=== PATIENT | male | born 1945 | race African-American/Black ===

== ENCOUNTER 2017-12-17 09:51 | Inpatient (IN) | payer OTHER ==
[2017-12-17 10:45] VITALS: BMI 21.5
--- NOTE | 2017-12-17 12:58 | HP ---
CIWA Score - CIWA Score Nausea/Vomitin Muscle Tremors: 2 Anxiety: 2 Agitation: 2 Paroxysmal Sweats: 1-Minimal Palms Moist Orientation: 0-Oriented Tacttile Disturbances: 1-Very Mild Itch/Numbness Auditory Disturbances: 1-Very Mild Visual Disturbances: 1-Very Mild Sensitivity Headache: 2-Mild CIWA-Ar Total Score: 14 Admission ROS BHS - HPI Chief Complaint: i need help to stop drinking alcohol Allergies/Adverse Reactions: Allergies Allergy/AdvReac Type Severity Reaction Status Date / Time No Known Allergies Allergy Verified 12/17/17 12:24 History of Present Illness: this 72 years old male with alcohol dependence,heroin abused,syncope yesterday, seen in [facility] was told had fx left ribs, ambulation with cane for 10 years low back pain,arthritis of knees htn non compliance nicotine dependence multiple admissions in the past last 08/23/15 to 08/18/15 no significant period of sobreity Exam Limitations: No Limitations - Ebola screening Have you traveled outside of the country in the last 21 days: No (N) Have you had contact with anyone from an Ebola affected area: No Have you been sick,other than usual withdrawal symptoms: No Do you have a fever: No - Review of Systems Constitutional: Loss of Appetite, Malaise, Night Sweats, Changes in sleep, Weakness, Unintentional Wgt. Loss EENT: reports: Nose Congestion Respiratory: reports: No Symptoms reported Cardiac: reports: No Symptoms Reported GI: reports: Nausea, Abdominal cramping : reports: No Symptoms Reported Musculoskeletal: reports: Back Pain, Muscle Pain Integumentary: reports: Dryness Neuro: reports: Headache, Tremors Endocrine: reports: No Symptoms Reported Hematology: reports: No Symptoms Reported Psychiatric: reports: No Sypmtoms Reported, Judgement Intact, Mood/Affect Appropiate, Orientated x3 Patient History - Patient Medical History Hx Anemia: No Hx Asthma: No Hx Chronic Obstructive Pulmonary Disease (COPD): No Hx Cancer: No Hx Cardiac Disorders: Yes (Pt has a pacemaker since 2013) Hx Congestive Heart Failure: No Hx Hypertension: Yes Hx Hypercholesterolemia: No Hx Pacemaker: Yes (in 2013 [facility]) HX Cerebrovascular Accident: No Hx Seizures: No Hx Dementia: No Hx Diabetes: No Hx Gastrointestinal Disorders: No Hx Liver Disease: No Hx Genitourinary Disorders: No Hx Sexually Transmitted Disorders: No Hx Renal Disease (ESRD): No Hx Thyroid Disease: No Hx Human Immunodeficiency Virus (HIV): No (last negative 2014) Hx Hepatitis C: No Hx Depression: No Hx Suicide Attempt: No Hx Bipolar Disorder: No Hx Schizophrenia: No Other Medical History: no suicidal,no homicidal - Patient Surgical History Past Surgical History: Yes Hx Cardiac Surgery: Yes (s/p cardiac device pacemaker at [facility] in 2013) - PPD History Previous Implant?: Yes Documented Results: Negative w/o proof Implanted On Prior [facility] Admission?: Yes Date: 08/25/15 PPD to be Administered?: Yes - Smoking Cessation Smoking history: Current every day smoker Have you smoked in the past 12 months: Yes Aproximately how many cigarettes per day: 6 Cigars Per Day: 0 Hx Chewing Tobacco Use: No Initiated information on smoking cessation: Yes 'Breaking Loose' booklet given: 12/17/17 - Substance & Tx. History Hx Alcohol Use: Yes Hx Substance Use: No Substance Use Type: Alcohol Hx Substance Use Treatment: Yes ([facility] 08/23/15 to 08/28/15) - Substances Abused Alcohol Route: Oral Frequency: Daily Amount used: 1 and 1/2 pints vodka Age of first use: 17 Date of Last Use: 12/16/17 Family Disease History - Family Disease History Family History: Denies Admission Physical Exam S - Vital Signs Vital Signs: Vital Signs - 24 hr 12/17/17 10:42 Temperature 97.6 F Pulse Rate 79 Respiratory 18 Rate Blood Pressure 117/71 - Physical General Appearance: Yes: Moderate Distress, Tremorous, Irritable, Sweating, Anxious HEENTM: Yes: Normocephalic, FELIBERTO, Pharynx Normal Respiratory: Yes: Within Normal Limits (pain in the left ribs,fell yesterday), Lungs Clear Neck: Yes: Within Normal Limits, Supple, Trachea in good position Breast: Yes: Within Normal Limits Cardiology: Yes: Within Normal Limits, Regular Rhythm, Regular Rate, S1, S2, Other (s/p pacemaker left chest wall) Abdominal: Yes: Within Normal Limits, Normal Bowel Sounds, Non Tender, Flat, Soft Genitourinary: Yes: Within Normal Limits Back: Yes: Normal Inspection, Muscle Spasm Musculoskeletal: Yes: Back pain, Muscle Pain Extremities: Yes: Within Normal Limits, Normal Range of Motion, Tremors Neurological: Yes: assorter II-XII NML intact, Alert, Motor Strength 5/5 Integumentary: Yes: Dry Lymphatic: Yes: Within Normal Limits - Diagnostic (1) Alcohol dependence with uncomplicated withdrawal Current Visit: No Status: Acute (2) Arthritis of both knees Current Visit: No Status: Acute (3) Essential hypertension Current Visit: No Status: Acute (4) Nicotine dependence Current Visit: No Status: Acute Qualifiers: Nicotine product type: cigarettes Substance use status: uncomplicated Qualified Code(s): F17.210 - Nicotine dependence, cigarettes, uncomplicated (5) Status post placement of cardiac pacemaker Current Visit: No Status: Acute (6) Syncope Current Visit: No Status: Acute (7) Use of cane as ambulatory aid Current Visit: No Status: Acute (8) Fracture, ribs Current Visit: Yes Status: Acute Qualifiers: Laterality: left (9) Dehydration Current Visit: Yes Status: Acute (10) Syncope Current Visit: Yes Status: Acute Cleared for Admission S - Detox or Rehab S Level of Care: Medically Managed Detox Regimen/Protocol: Librium S Breath Alcohol Content Breath Alcohol Content: 0 Urine Drug Screen - Results Drug Screen Negative: Yes
[2017-12-17] MEDS ORDERED: hydrOXYzine PAMOATE 25 MG CAPSULE (FP) PO PRN (13:07)
[2017-12-17] MEDS ORDERED: P-EPHED 60MG/TRIPROLIDI 2.5MG TABLET PO PRN (13:07)
[2017-12-17] MEDS ORDERED: LOPERAMIDE HCL 2 MG CAPSULE PO PRN (13:07)
[2017-12-17] MEDS ORDERED: MAG HYDROX/AL HYDROX/SIMETH 30 ML UNIT-DOSE CUP PO PRN (13:07)
[2017-12-17] MEDS ORDERED: chlordiazePOXIDE HCL 25 MG CAPSULE PO PRN (13:07)
[2017-12-17] MEDS ORDERED: MAGNESIUM CITRATE 300 ML BOTTLE PO PRN (13:07)
[2017-12-17] MEDS ORDERED: guaiFENesin/D-METHORPHAN HB 10 ML UNIT-DOSE CUPS PO PRN (13:07)
[2017-12-17] MEDS ORDERED: MENTHOL/PHENOL 1 EACH UD MM PRN (13:07)
[2017-12-17] MEDS ORDERED: MAGNESIUM HYDROX 2400MG/30ML ORAL SUSPENSION 30 ML CUP PO PRN (13:07)
[2017-12-17] MEDS: chlordiazePOXIDE HCL 25 MG CAPSULE PO SCH ×2 (17:48→22:12)
[2017-12-17] MEDS: IBUPROFEN 400 MG TABLET (FP) PO PRN (17:51)
[2017-12-17] MEDS ORDERED: MELATONIN 5 MG TABLETS PO PRN (22:00)
[2017-12-17] MEDS: THIAMINE HCL 100 MG TABLET (FP) PO SCH (22:12)
[2017-12-17] MEDS: ACETAMINOPHEN 325 MG TABLET (FP) PO PRN (22:15)
[2017-12-17] MEDS: METHYL SALICYLATE/MENTHOL OINT 30 GM TUBE TP SCH (22:48)
[2017-12-18] MEDS: IBUPROFEN 400 MG TABLET (FP) PO PRN ×2 (05:12→17:40)
[2017-12-18] MEDS: chlordiazePOXIDE HCL 25 MG CAPSULE PO SCH ×4 (06:25→22:26)
--- NOTE | 2017-12-18 09:24 | EKG ---
Test Reason : Blood Pressure : / mmHG Vent. Rate : 076 BPM Atrial Rate : 076 BPM P-R Int : 136 ms QRS Dur : 086 ms QT Int : 400 ms P-R-T Axes : 070 034 063 degrees QTc Int : 450 ms NORMAL SINUS RHYTHM NONSPECIFIC T WAVE ABNORMALITY ABNORMAL ECG NO PREVIOUS ECGS AVAILABLE Confirmed by LAVONNE FRAUSTO, VIPUL (2013) on 12/18/2017 9:23:20 AM Referred By: Confirmed By:VIPUL BANERJEE MD
[2017-12-18] MEDS: PRENATAL VITAMINS W/ FOLIC ACID TABLET (FP) PO SCH (10:17)
[2017-12-18] MEDS: NIFEdipine E.R. 30 MG TABLET (FP) PO SCH (10:17)
[2017-12-18] MEDS: METHYL SALICYLATE/MENTHOL OINT 30 GM TUBE TP SCH (10:17)
[2017-12-18 10:42] LABS: ALK PHOS 94 U/L (45-117); ANION GAP 7 MMOL/L (8-16); BILIRUBIN,TOTAL 0.7 mg/dL (0.2-1); BLOOD UREA NITROGEN 19 mg/dL (7-18); CALCIUM 9.8 mg/dL (8.5-10.1); CHLORIDE 102 mmol/L (98-107); CO2 33 mmol/L (21-32); GLUCOSE,RANDOM 92 mg/dL (74-106); HEMATOCRIT 41.8 % (35.4-49); HEMOGLOBIN 13.3 GM/dL (11.7-16.9); MCH 30.3 pg (25.7-33.7); MCHC 31.9 g/dl (32.0-35.9); MEAN CELL VOLUME 94.8 fl (80-96); MEAN PLT VOLUME 9.3 fl (7.5-11.1); PLATELET COUNT 209 K/MM3 (134-434); POTASSIUM 4.1 mmol/L (3.5-5.1); RBC 4.41 M/mm3 (4.00-5.60); RDW 15.8 % (11.9-15.9); SGOT/AST 27 U/L (15-37); SGPT/ALT 21 U/L (13-61); SODIUM 142 mmol/L (136-145); TOT PROT 7.4 g/dl (6.4-8.2); WHITE BLOOD COUNT 4.9 K/mm3 (4.0-10.0)
--- NOTE | 2017-12-18 11:09 | PN ---
BHS CIWA - CIWA Score Nausea/Vomitin Muscle Tremors: 2 Anxiety: 1-Mildly Anxious Agitation: 1-Slight > Activity Paroxysmal Sweats: No Perspiration Orientation: 0-Oriented Tacttile Disturbances: 0-None Auditory Disturbances: 0-None Visual Disturbances: 0-None Headache: 2-Mild CIWA-Ar Total Score: 8 BHS Progress Note (SOAP) Subjective: PATIENT C/O INTERMITTENT DIARRHEA, SHAKES AND HEADACHE. Objective: 12/18/17 11:07 Vital Signs Temperature 97.1 F L 12/18/17 09:30 Pulse Rate 74 12/18/17 09:30 Respiratory Rate 18 12/18/17 09:30 Blood Pressure 128/80 12/18/17 09:30 O2 Sat by Pulse Oximetry (%) Laboratory Tests 12/18/17 12/18/17 06:00 06:00 WBC 4.9 RBC 4.41 Hgb 13.3 Hct 41.8 MCV 94.8 MCH 30.3 D MCHC 31.9 L RDW 15.8 Plt Count 209 MPV 9.3 Sodium 142 Potassium 4.1 Chloride 102 Carbon Dioxide 33 H Anion Gap 7 L BUN 19 H Creatinine 1.0 Creat Clearance w eGFR > 60 Random Glucose 92 Calcium 9.8 Total Bilirubin 0.7 AST 27 ALT 21 Alkaline Phosphatase 94 Total Protein 7.4 Albumin 4.0 SKIN WARM AND DRY CAR S1S2 RESP CTA BL EXT MILD TREMORS NEURO ALERT AND ORIENTED X 3, +PERRLA Assessment: 12/18/17 11:08 WITHDRAWAL SYNDROME Plan: CONTINUE DETOX ORDERED ENCOURAGE ORAL FLUIDS CONTINUE TO MONITOR CLINICALLY
[2017-12-18] MEDS ORDERED: FLU VACCINE QUAD 60 MCG/0.5 ML (MDV 18-19) IM ONE (12:00)
[2017-12-18] MEDS: THIAMINE HCL 100 MG TABLET (FP) PO SCH (22:25)
[2017-12-19] MEDS: chlordiazePOXIDE HCL 25 MG CAPSULE PO SCH ×2 (06:40→10:32)
[2017-12-19] MEDS ORDERED: ONDANSETRON *ODT* 4 MG TABLET SL PRN (10:29)
[2017-12-19] MEDS: PRENATAL VITAMINS W/ FOLIC ACID TABLET (FP) PO SCH (10:31)
[2017-12-19] MEDS: NIFEdipine E.R. 30 MG TABLET (FP) PO SCH (10:32)
[2017-12-19] MEDS: IBUPROFEN 400 MG TABLET (FP) PO PRN ×2 (10:33→22:15)
[2017-12-19] MEDS: METHYL SALICYLATE/MENTHOL OINT 30 GM TUBE TP SCH (10:35)
--- NOTE | 2017-12-19 11:32 | PN ---
S CIWA - CIWA Score Nausea/Vomitin Muscle Tremors: 1-None Visible, but [place] Anxiety: 1-Mildly Anxious Agitation: 1-Slight > Activity Paroxysmal Sweats: 2 Orientation: 0-Oriented Tacttile Disturbances: 0-None Auditory Disturbances: 0-None Visual Disturbances: 0-None Headache: 0-None Present CIWA-Ar Total Score: 8 BHS Progress Note (SOAP) Subjective: PATIENT C/O NAUSEA AND VOMITED LAST NIGHT X ONE, ALSO C/O ANXIETY, SWEATING. Objective: 12/19/17 11:30 Vital Signs Temperature 96.8 F L 12/19/17 09:08 Pulse Rate 74 12/19/17 09:08 Respiratory Rate 18 12/19/17 09:08 Blood Pressure 104/69 12/19/17 09:08 O2 Sat by Pulse Oximetry (%) Laboratory Tests 12/18/17 12/18/17 12/18/17 06:00 06:00 06:00 WBC 4.9 RBC 4.41 Hgb 13.3 Hct 41.8 MCV 94.8 MCH 30.3 D MCHC 31.9 L RDW 15.8 Plt Count 209 MPV 9.3 Sodium 142 Potassium 4.1 Chloride 102 Carbon Dioxide 33 H Anion Gap 7 L BUN 19 H Creatinine 1.0 Creat Clearance w eGFR > 60 Random Glucose 92 Calcium 9.8 Total Bilirubin 0.7 AST 27 ALT 21 Alkaline Phosphatase 94 Total Protein 7.4 Albumin 4.0 RPR Titer Nonreactive PE ALERT AND ORIENTED X 3 SKIN WARM AND MOIST CAR S1S2 RESP CTA BL GI SOFT, BS+, NT EXT FULL ROM AMB AD NICOLA Assessment: 12/19/17 11:31 WITHDRAWAL SYNDROME Plan: CONTINUE DETOX ENCOURAGE ORAL FLUIDS ADD ZOFRAN TO REGIMEN CONTINUE TO MONITOR CLINICALLY
[2017-12-19] MEDS: chlordiazePOXIDE 5 MG CAPSULE PO SCH ×2 (17:20→22:12)
[2017-12-19] MEDS: THIAMINE HCL 100 MG TABLET (FP) PO SCH (22:12)
[2017-12-20] MEDS: chlordiazePOXIDE 5 MG CAPSULE PO SCH ×2 (06:57→10:25)
[2017-12-20] MEDS: PRENATAL VITAMINS W/ FOLIC ACID TABLET (FP) PO SCH (10:24)
[2017-12-20] MEDS: METHYL SALICYLATE/MENTHOL OINT 30 GM TUBE TP SCH (10:24)
[2017-12-20] MEDS: NIFEdipine E.R. 30 MG TABLET (FP) PO SCH (10:24)
--- NOTE | 2017-12-20 11:21 | PN ---
S Progress Note Note: PATIENT CONTINUES WITH DETOX REGIMEN. REPORTS HAVING NAUSEA AND VOMITED X 2 LAST NIGHT. Vital Signs Temperature 96.7 F L 12/20/17 09:45 Pulse Rate 76 12/20/17 09:45 Respiratory Rate 18 12/20/17 09:45 Blood Pressure 106/82 12/20/17 09:45 O2 Sat by Pulse Oximetry (%) Laboratory Tests 12/18/17 12/18/17 12/18/17 06:00 06:00 06:00 WBC 4.9 RBC 4.41 Hgb 13.3 Hct 41.8 MCV 94.8 MCH 30.3 D MCHC 31.9 L RDW 15.8 Plt Count 209 MPV 9.3 Sodium 142 Potassium 4.1 Chloride 102 Carbon Dioxide 33 H Anion Gap 7 L BUN 19 H Creatinine 1.0 Creat Clearance w eGFR > 60 Random Glucose 92 Calcium 9.8 Total Bilirubin 0.7 AST 27 ALT 21 Alkaline Phosphatase 94 Total Protein 7.4 Albumin 4.0 RPR Titer Nonreactive PE: ALERT AND ORIENTED X 3 SKIN WARM AND DRY CAR S1S2 RESP CTA BL EXT NO EDEMA, FULL ROM A/P WITHDRAWAL SYNDROME CONTINUE DETOX G[place] ADDED TO DIET CONTINUE TO MONITOR CLINICALLY
[2017-12-20] MEDS: chlordiazePOXIDE HCL 10 MG CAPSULE PO SCH ×2 (17:39→22:17)
[2017-12-20] MEDS: THIAMINE HCL 100 MG TABLET (FP) PO SCH (22:17)
[2017-12-20] MEDS: IBUPROFEN 400 MG TABLET (FP) PO PRN (22:19)
[2017-12-21] MEDS: ACETAMINOPHEN 325 MG TABLET (FP) PO PRN (01:56)
[2017-12-21] MEDS: chlordiazePOXIDE HCL 10 MG CAPSULE PO SCH ×2 (05:04→10:31)
[2017-12-21] MEDS: IBUPROFEN 400 MG TABLET (FP) PO PRN (05:04)
[2017-12-21] MEDS: METHYL SALICYLATE/MENTHOL OINT 30 GM TUBE TP SCH (10:30)
[2017-12-21] MEDS: NIFEdipine E.R. 30 MG TABLET (FP) PO SCH (10:30)
[2017-12-21] MEDS: PRENATAL VITAMINS W/ FOLIC ACID TABLET (FP) PO SCH (10:30)
--- NOTE | 2017-12-21 13:06 | PN ---
BHS Progress Note (SOAP) Subjective: Sweating, anxious, interrupted sleep. Patient requesting [facility] Objective: 12/21/17 13:02 Last Vital Signs Temp Pulse Resp BP Pulse Ox 97 F L 60 16 116/74 12/21/17 09:26 12/21/17 09:26 12/21/17 09:26 12/21/17 09:26 Laboratory Tests 12/18/17 12/18/17 12/18/17 06:00 06:00 06:00 WBC 4.9 RBC 4.41 Hgb 13.3 Hct 41.8 MCV 94.8 MCH 30.3 D MCHC 31.9 L RDW 15.8 Plt Count 209 MPV 9.3 Sodium 142 Potassium 4.1 Chloride 102 Carbon Dioxide 33 H Anion Gap 7 L BUN 19 H Creatinine 1.0 Creat Clearance w eGFR > 60 Random Glucose 92 Calcium 9.8 Total Bilirubin 0.7 AST 27 ALT 21 Alkaline Phosphatase 94 Total Protein 7.4 Albumin 4.0 RPR Titer Nonreactive Labs reviewed Assessment: 12/21/17 13:03 Withdrawal symptoms Plan: Continue detox Encouraged PO water intake Discharge cancelled for today as patient has straight medicaid and requesting to stay so that he can receive [facility]. Patient instructed to speak with his counselor tomorrow. Patient is concerned about drinking alcohol if he is discharged today.
[2017-12-21] MEDS: THIAMINE HCL 100 MG TABLET (FP) PO SCH (22:45)
[2017-12-22] MEDS: IBUPROFEN 400 MG TABLET (FP) PO PRN (00:27)
[2017-12-22] MEDS: ACETAMINOPHEN 325 MG TABLET (FP) PO PRN (03:29)
[2017-12-22] MEDS: NIFEdipine E.R. 30 MG TABLET (FP) PO SCH (10:19)
[2017-12-22] MEDS: PRENATAL VITAMINS W/ FOLIC ACID TABLET (FP) PO SCH (10:19)
[2017-12-22] MEDS: METHYL SALICYLATE/MENTHOL OINT 30 GM TUBE TP SCH (10:19)
--- NOTE | 2017-12-22 13:42 | HP ---
Psychiatrist Admission - Data Date of interview: 12/22/17 Admission source: 6N Identifying data: This is the first [facility] admission for this 72 years old Black male, father of 6 children, unemployed on SSI, domiciled Medical History: Significant for hypertension, dyslipidemia, low back pain, arthritis both knees and history of pacemaker implantation in 2013. Smokes 5 cigarettes daily Psychiatric History: Denies history of previous psychiatric treatment Physical/Sexual Abuse/Trauma History: Denies history of emotional, physical or sexual abuse as well as DV relationship. Reports serving in the [employer] Vital Signs: Vital Signs - 24 hr 12/21/17 12/21/17 12/21/17 13:52 17:49 21:07 Temperature 97.1 F L 97.9 F 96.5 F L Pulse Rate 61 72 69 Respiratory 18 16 18 Rate Blood Pressure 118/84 129/81 101/68 12/22/17 12/22/17 06:04 09:58 Temperature 97.5 F L 96.4 F L Pulse Rate 57 L 69 Respiratory 18 18 Rate Blood Pressure 120/78 113/74 Allergies/Adverse Reactions: Allergies Allergy/AdvReac Type Severity Reaction Status Date / Time No Known Allergies Allergy Verified 12/17/17 12:24 Date of last physical exam: 12/17/17 Concur with the findings of this exam: Yes - Substance Abuse/Tx History Hx Alcohol Use: Yes Hx Substance Use: No Substance Use Type: Alcohol (Started drinking alcohol at age 17, consumes 1.5 pint daily. Last drank on 12/16/17) Hx Substance Use Treatment: Yes (2 previous inpt detox and rehab ) Mental Status Exam - Mental Status Exam Alert and Oriented to: Time, Place, Person Cognitive Function: Fair Patient Appearance: Disheveled Mood: Hopeful, Euthymic Patient Behavior: Cooperative Speech Pattern: Clear Voice Loudness: Normal Thought Process: Intact, Goal Oriented Thought Disorder: Not Present Hallucinations: Denies Suicidal Ideation: Denies Homicidal Ideation: Denies Insight/Judgement: Fair Sleep: Poorly Appetite: Good Muscle strength/Tone: Normal Gait/Station: Other (Uses a 4 prong cane as ambulatory aid) Psychiatric Findings - Problem List ([place] 1, 2,3) (1) Alcohol dependence Current Visit: Yes Status: Acute Qualifiers: Qualified Code(s): F10.230 - Alcohol dependence with withdrawal, uncomplicated (2) Nicotine dependence Current Visit: Yes Status: Chronic Qualifiers: Nicotine product type: cigarettes Substance use status: uncomplicated Qualified Code(s): F17.210 - Nicotine dependence, cigarettes, uncomplicated (3) Substance induced mood disorder Current Visit: Yes Status: Acute (4) Substance-induced sleep disorder Current Visit: Yes Status: Acute (5) Fracture, ribs Current Visit: Yes Status: Acute Qualifiers: Laterality: left (6) Arthritis of both knees Current Visit: Yes Status: Chronic (7) Essential hypertension Current Visit: Yes Status: Chronic (8) Status post placement of cardiac pacemaker Current Visit: Yes Status: Chronic (9) Use of cane as ambulatory aid Current Visit: No Status: Acute - Initial Treatment Plan Initial Treatment Plan: 1) Start Melatonin 5 mg po HS prn for insomnia. 2) Monitor progress
--- NOTE | 2017-12-22 14:40 | PN ---
BHS Progress Note (SOAP) Subjective: Knee pain Objective: 12/22/17 14:39 Lying in bed No resp distress A & O x 3 Vital Signs Temperature 96.4 F L 12/22/17 09:58 Pulse Rate 69 12/22/17 09:58 Respiratory Rate 18 12/22/17 09:58 Blood Pressure 113/74 12/22/17 09:58 O2 Sat by Pulse Oximetry (%) Assessment: 12/22/17 14:40 withdrawal sx Knee pain s/p Arthritis Plan: for d/c
--- NOTE | 2017-12-22 14:45 | DS ---
[facility] Detox Discharge Summary Admission Date: 12/17/17 Discharge Date: 12/22/17 - History Additional Comments: Pt for discharge today Will do aftercare at [facility] Rehab Pertinent Past History: HTN Arthritis of both knee S/p cardiac pacemaker - Physical Exam Results Vital Signs: Vital Signs Temperature 96.4 F L 12/22/17 09:58 Pulse Rate 69 12/22/17 09:58 Respiratory Rate 18 12/22/17 09:58 Blood Pressure 113/74 12/22/17 09:58 O2 Sat by Pulse Oximetry (%) Pertinent Admission Physical Exam Findings: withdrawal sx - Treatment Hospital Course: Detox Protocol Followed, Detoxed Safely, Responded well, Discharged Condition Good, Rehab Referral Accepted Patient has Accepted a Rehab Referral to: [facility] Rehab - Medication Discharge Medications: Ambulatory Orders Nifedipine [Procardia Xl] 30 mg PO DAILY #30 tab.[id number] 12/20/17 - Diagnosis (1) Alcohol dependence with uncomplicated withdrawal Current Visit: Yes Status: Acute (2) Dehydration Current Visit: Yes Status: Acute (3) Fracture, ribs Current Visit: Yes Status: Acute Qualifiers: Laterality: left (4) Substance induced mood disorder Current Visit: Yes Status: Acute (5) Substance-induced sleep disorder Current Visit: Yes Status: Acute (6) Arthritis of both knees Current Visit: Yes Status: Chronic (7) Essential hypertension Current Visit: Yes Status: Chronic (8) Nicotine dependence Current Visit: Yes Status: Chronic Qualifiers: Nicotine product type: cigarettes Substance use status: uncomplicated Qualified Code(s): F17.210 - Nicotine dependence, cigarettes, uncomplicated (9) Status post placement of cardiac pacemaker Current Visit: Yes Status: Chronic (10) Syncope Current Visit: No Status: Acute (11) Use of cane as ambulatory aid Current Visit: No Status: Acute - AMA Did Patient Leave Against Medical Advice: No
[2017-12-22] MEDS ORDERED: hydrOXYzine PAMOATE 25 MG CAPSULE (FP) PO PRN (15:45)
[2017-12-22] MEDS ORDERED: P-EPHED 60MG/TRIPROLIDI 2.5MG TABLET PO PRN (15:45)
[2017-12-22] MEDS ORDERED: MENTHOL/PHENOL 1 EACH UD MM PRN (15:45)
[2017-12-22] MEDS ORDERED: LOPERAMIDE HCL 2 MG CAPSULE PO PRN (15:45)
[2017-12-22] MEDS ORDERED: MAGNESIUM HYDROX 2400MG/30ML ORAL SUSPENSION 30 ML CUP PO PRN (15:45)
[2017-12-22] MEDS ORDERED: MAGNESIUM CITRATE 300 ML BOTTLE PO PRN (15:45)
[2017-12-22] MEDS ORDERED: NICOTINE POLACRILEX 2 MG GUM BUC PRN (15:45)
[2017-12-22] MEDS ORDERED: MAG HYDROX/AL HYDROX/SIMETH 30 ML UNIT-DOSE CUP PO PRN (15:45)
[2017-12-22] MEDS ORDERED: guaiFENesin/D-METHORPHAN HB 10 ML UNIT-DOSE CUPS PO PRN (15:45)
[2017-12-22] MEDS: THIAMINE HCL 100 MG TABLET (FP) PO SCH (21:37)
[2017-12-22] MEDS ORDERED: MELATONIN 5 MG TABLETS PO PRN (22:00)
[2017-12-23] MEDS: IBUPROFEN 400 MG TABLET (FP) PO PRN ×3 (09:55→21:48)
[2017-12-23] MEDS: PRENATAL VITAMINS W/ FOLIC ACID TABLET (FP) PO SCH (09:55)
[2017-12-23] MEDS: NIFEdipine E.R. 30 MG TABLET (FP) PO SCH (10:20)
[2017-12-23] MEDS: THIAMINE HCL 100 MG TABLET (FP) PO SCH (21:47)
[2017-12-24] MEDS: PRENATAL VITAMINS W/ FOLIC ACID TABLET (FP) PO SCH (09:39)
[2017-12-24] MEDS: NIFEdipine E.R. 30 MG TABLET (FP) PO SCH (09:42)
[2017-12-24] MEDS: THIAMINE HCL 100 MG TABLET (FP) PO SCH (21:18)
[2017-12-24] MEDS: IBUPROFEN 400 MG TABLET (FP) PO PRN (21:19)
[2017-12-25] MEDS: NIFEdipine E.R. 30 MG TABLET (FP) PO SCH (09:40)
[2017-12-25] MEDS: PRENATAL VITAMINS W/ FOLIC ACID TABLET (FP) PO SCH (09:40)
[2017-12-25] MEDS ORDERED: FLU VACCINE QUAD 60 MCG/0.5 ML (MDV 18-19) IM ONE (12:00)
[2017-12-25] MEDS: THIAMINE HCL 100 MG TABLET (FP) PO SCH (21:17)
[2017-12-25] MEDS: IBUPROFEN 400 MG TABLET (FP) PO PRN (21:17)
[2017-12-26] MEDS: PRENATAL VITAMINS W/ FOLIC ACID TABLET (FP) PO SCH (09:50)
[2017-12-26] MEDS: NIFEdipine E.R. 30 MG TABLET (FP) PO SCH (09:51)
[2017-12-26] MEDS: IBUPROFEN 400 MG TABLET (FP) PO PRN ×2 (09:51→21:35)
[2017-12-26] MEDS: THIAMINE HCL 100 MG TABLET (FP) PO SCH (21:34)
[2017-12-27] MEDS: IBUPROFEN 400 MG TABLET (FP) PO PRN ×2 (05:59→21:35)
[2017-12-27] MEDS: PRENATAL VITAMINS W/ FOLIC ACID TABLET (FP) PO SCH (10:12)
[2017-12-27] MEDS: NIFEdipine E.R. 30 MG TABLET (FP) PO SCH (10:12)
[2017-12-27] MEDS: THIAMINE HCL 100 MG TABLET (FP) PO SCH (21:35)
[2017-12-28] MEDS: PRENATAL VITAMINS W/ FOLIC ACID TABLET (FP) PO SCH (09:43)
[2017-12-28] MEDS: NIFEdipine E.R. 30 MG TABLET (FP) PO SCH (09:44)
[2017-12-28] MEDS: IBUPROFEN 400 MG TABLET (FP) PO PRN ×2 (09:45→21:29)
[2017-12-28] MEDS: THIAMINE HCL 100 MG TABLET (FP) PO SCH (21:29)
[2017-12-29] MEDS: PRENATAL VITAMINS W/ FOLIC ACID TABLET (FP) PO SCH (09:52)
[2017-12-29] MEDS: NIFEdipine E.R. 30 MG TABLET (FP) PO SCH (09:52)
[2017-12-29] MEDS: IBUPROFEN 400 MG TABLET (FP) PO PRN ×2 (09:52→21:48)
[2017-12-29] MEDS ORDERED: PT OWN MED DRAWER 7, Y5N ONE (10:52)
[2017-12-29] MEDS: THIAMINE HCL 100 MG TABLET (FP) PO SCH (21:48)
[2017-12-30] MEDS: NIFEdipine E.R. 30 MG TABLET (FP) PO SCH (09:43)
[2017-12-30] MEDS: IBUPROFEN 400 MG TABLET (FP) PO PRN ×2 (09:43→21:16)
[2017-12-30] MEDS: PRENATAL VITAMINS W/ FOLIC ACID TABLET (FP) PO SCH (09:43)
[2017-12-30] MEDS ORDERED: PT OWN MED DRAWER 7, Y5N ONE (11:47)
[2017-12-30] MEDS: THIAMINE HCL 100 MG TABLET (FP) PO SCH (21:16)
[2017-12-31] MEDS: PRENATAL VITAMINS W/ FOLIC ACID TABLET (FP) PO SCH (10:37)
[2017-12-31] MEDS: NIFEdipine E.R. 30 MG TABLET (FP) PO SCH (10:37)
[2017-12-31] MEDS: IBUPROFEN 400 MG TABLET (FP) PO PRN ×2 (10:39→22:00)
[2017-12-31] MEDS: THIAMINE HCL 100 MG TABLET (FP) PO SCH (22:00)
[2018-01-01] MEDS: PRENATAL VITAMINS W/ FOLIC ACID TABLET (FP) PO SCH (09:30)
[2018-01-01] MEDS: NIFEdipine E.R. 30 MG TABLET (FP) PO SCH (09:30)
[2018-01-01] MEDS: IBUPROFEN 400 MG TABLET (FP) PO PRN ×2 (09:31→21:42)
[2018-01-01] MEDS: THIAMINE HCL 100 MG TABLET (FP) PO SCH (21:42)
[2018-01-02] MEDS: NIFEdipine E.R. 30 MG TABLET (FP) PO SCH (10:48)
[2018-01-02] MEDS: IBUPROFEN 400 MG TABLET (FP) PO PRN ×2 (10:49→21:16)
[2018-01-02] MEDS: PRENATAL VITAMINS W/ FOLIC ACID TABLET (FP) PO SCH (10:49)
[2018-01-02] MEDS: THIAMINE HCL 100 MG TABLET (FP) PO SCH (21:16)
[2018-01-03] MEDS: PRENATAL VITAMINS W/ FOLIC ACID TABLET (FP) PO SCH (09:55)
[2018-01-03] MEDS: IBUPROFEN 400 MG TABLET (FP) PO PRN ×2 (09:55→21:38)
[2018-01-03] MEDS: NIFEdipine E.R. 30 MG TABLET (FP) PO SCH (09:56)
[2018-01-03] MEDS: THIAMINE HCL 100 MG TABLET (FP) PO SCH (21:37)
[2018-01-04] MEDS: PRENATAL VITAMINS W/ FOLIC ACID TABLET (FP) PO SCH (10:07)
[2018-01-04] MEDS: NIFEdipine E.R. 30 MG TABLET (FP) PO SCH (10:07)
[2018-01-04] MEDS: IBUPROFEN 400 MG TABLET (FP) PO PRN ×2 (10:08→21:46)
[2018-01-04] MEDS: THIAMINE HCL 100 MG TABLET (FP) PO SCH (21:45)
[2018-01-05] MEDS: NIFEdipine E.R. 30 MG TABLET (FP) PO SCH (10:07)
[2018-01-05] MEDS: PRENATAL VITAMINS W/ FOLIC ACID TABLET (FP) PO SCH (10:07)
[2018-01-05] MEDS: IBUPROFEN 400 MG TABLET (FP) PO PRN ×2 (10:07→21:31)
[2018-01-05] MEDS: THIAMINE HCL 100 MG TABLET (FP) PO SCH (21:30)
[2018-01-06] MEDS: PRENATAL VITAMINS W/ FOLIC ACID TABLET (FP) PO SCH (10:00)
[2018-01-06] MEDS: NIFEdipine E.R. 30 MG TABLET (FP) PO SCH (10:00)
[2018-01-06] MEDS: IBUPROFEN 400 MG TABLET (FP) PO PRN ×2 (10:01→21:34)
[2018-01-06] MEDS: THIAMINE HCL 100 MG TABLET (FP) PO SCH (22:00)
[2018-01-07] MEDS: IBUPROFEN 400 MG TABLET (FP) PO PRN ×2 (10:24→21:09)
[2018-01-07] MEDS: PRENATAL VITAMINS W/ FOLIC ACID TABLET (FP) PO SCH (10:24)
[2018-01-07] MEDS: NIFEdipine E.R. 30 MG TABLET (FP) PO SCH (10:24)
[2018-01-07] MEDS: THIAMINE HCL 100 MG TABLET (FP) PO SCH (21:08)
[2018-01-08] MEDS: NIFEdipine E.R. 30 MG TABLET (FP) PO SCH (09:56)
[2018-01-08] MEDS: PRENATAL VITAMINS W/ FOLIC ACID TABLET (FP) PO SCH (09:56)
[2018-01-08] MEDS: IBUPROFEN 400 MG TABLET (FP) PO PRN ×2 (09:56→22:02)
[2018-01-08] MEDS ORDERED: COLLOIDAL OATMEAL 1 BAR EACH TP PRN (13:50)
[2018-01-08] MEDS: THIAMINE HCL 100 MG TABLET (FP) PO SCH (22:02)
[2018-01-09] MEDS: IBUPROFEN 400 MG TABLET (FP) PO PRN ×2 (10:30→22:31)
[2018-01-09] MEDS: PRENATAL VITAMINS W/ FOLIC ACID TABLET (FP) PO SCH (10:30)
[2018-01-09] MEDS: NIFEdipine E.R. 30 MG TABLET (FP) PO SCH (10:30)
[2018-01-09] MEDS: THIAMINE HCL 100 MG TABLET (FP) PO SCH (22:31)
[2018-01-10] MEDS: IBUPROFEN 400 MG TABLET (FP) PO PRN ×2 (10:19→21:42)
[2018-01-10] MEDS: NIFEdipine E.R. 30 MG TABLET (FP) PO SCH (10:19)
[2018-01-10] MEDS: PRENATAL VITAMINS W/ FOLIC ACID TABLET (FP) PO SCH (10:19)
[2018-01-10] MEDS: THIAMINE HCL 100 MG TABLET (FP) PO SCH (21:42)
[2018-01-11] MEDS: NIFEdipine E.R. 30 MG TABLET (FP) PO SCH (10:12)
[2018-01-11] MEDS: PRENATAL VITAMINS W/ FOLIC ACID TABLET (FP) PO SCH (10:13)
[2018-01-11] MEDS: ACETAMINOPHEN 325 MG TABLET (FP) PO PRN ×2 (10:14→21:58)
[2018-01-11] MEDS: THIAMINE HCL 100 MG TABLET (FP) PO SCH (21:58)
[2018-01-12] MEDS: IBUPROFEN 400 MG TABLET (FP) PO PRN ×2 (10:26→23:14)
[2018-01-12] MEDS: PRENATAL VITAMINS W/ FOLIC ACID TABLET (FP) PO SCH (10:26)
[2018-01-12] MEDS: NIFEdipine E.R. 30 MG TABLET (FP) PO SCH (10:26)
[2018-01-12] MEDS: LIDOCAINE 5% TOPICAL PATCH TP SCH (15:17)
[2018-01-12] MEDS: THIAMINE HCL 100 MG TABLET (FP) PO SCH (23:13)
[2018-01-12] MEDS: LIDOCAINE PATCH REMOVAL MC SCH (23:13)
[2018-01-13] MEDS: LIDOCAINE 5% TOPICAL PATCH TP SCH (09:56)
[2018-01-13] MEDS: NIFEdipine E.R. 30 MG TABLET (FP) PO SCH (09:56)
[2018-01-13] MEDS: PRENATAL VITAMINS W/ FOLIC ACID TABLET (FP) PO SCH (09:56)
[2018-01-13] MEDS: IBUPROFEN 400 MG TABLET (FP) PO PRN ×2 (09:57→21:54)
[2018-01-13] MEDS: THIAMINE HCL 100 MG TABLET (FP) PO SCH (21:54)
[2018-01-13] MEDS: LIDOCAINE PATCH REMOVAL MC SCH (22:51)
[2018-01-14] MEDS: NIFEdipine E.R. 30 MG TABLET (FP) PO SCH (10:30)
[2018-01-14] MEDS: PRENATAL VITAMINS W/ FOLIC ACID TABLET (FP) PO SCH (10:30)
[2018-01-14] MEDS: LIDOCAINE 5% TOPICAL PATCH TP SCH (10:30)
[2018-01-14] MEDS: LIDOCAINE PATCH REMOVAL MC SCH (22:16)
[2018-01-14] MEDS: THIAMINE HCL 100 MG TABLET (FP) PO SCH (22:16)
[2018-01-15] MEDS: PRENATAL VITAMINS W/ FOLIC ACID TABLET (FP) PO SCH (10:39)
[2018-01-15] MEDS: NIFEdipine E.R. 30 MG TABLET (FP) PO SCH (10:39)
[2018-01-15] MEDS: IBUPROFEN 400 MG TABLET (FP) PO PRN ×2 (10:39→21:57)
[2018-01-15] MEDS: LIDOCAINE 5% TOPICAL PATCH TP SCH (11:00)
[2018-01-15] MEDS: THIAMINE HCL 100 MG TABLET (FP) PO SCH (21:56)
[2018-01-15] MEDS: LIDOCAINE PATCH REMOVAL MC SCH (21:56)
[2018-01-16] MEDS: IBUPROFEN 400 MG TABLET (FP) PO PRN ×2 (10:27→22:19)
[2018-01-16] MEDS: NIFEdipine E.R. 30 MG TABLET (FP) PO SCH (10:27)
[2018-01-16] MEDS: PRENATAL VITAMINS W/ FOLIC ACID TABLET (FP) PO SCH (10:27)
[2018-01-16] MEDS: LIDOCAINE 5% TOPICAL PATCH TP SCH (10:28)
[2018-01-16] MEDS: THIAMINE HCL 100 MG TABLET (FP) PO SCH (22:19)
[2018-01-16] MEDS: LIDOCAINE PATCH REMOVAL MC SCH (22:59)
[2018-01-17] MEDS: PRENATAL VITAMINS W/ FOLIC ACID TABLET (FP) PO SCH (09:50)
[2018-01-17] MEDS: NIFEdipine E.R. 30 MG TABLET (FP) PO SCH (09:50)
[2018-01-17] MEDS: LIDOCAINE 5% TOPICAL PATCH TP SCH (09:50)
[2018-01-17] MEDS: IBUPROFEN 400 MG TABLET (FP) PO PRN ×2 (09:51→23:02)
[2018-01-17] MEDS: THIAMINE HCL 100 MG TABLET (FP) PO SCH (23:04)
[2018-01-17] MEDS: LIDOCAINE PATCH REMOVAL MC SCH (23:05)
--- NOTE | 2018-01-18 06:42 | PN ---
Psychiatric Progress Note Vital Signs: Vital Signs Period Temp Pulse Resp BP Sys/Fisher Pulse Ox Last 24 Hr 97.7 F 66-78 - 95-117/65-67 Date of Session: 01/18/18 Chief Complaint:: Discharge Note HPI: Patient addressing Alcohol Dependence comorbid with Nicotine Dependence, Substance-Induced Mood Disorder and Substance-Induced Sleep Disorder ROS: HTN, Arthritis both knees, S/P cardiac pacemaker placement, Fractures, ribs Current Medications: Active Medications Generic Name Dose Route Start Last Admin Trade Name Freq PRN Reason Stop Dose Admin Acetaminophen 650 mg 12/22/17 15:45 01/11/18 21:58 Tylenol - PO 650 mg Q4H PRN Administration FEVER Al Hydroxide/Mg Hydroxide 30 ml 12/22/17 15:45 01/09/18 23:46 Mylanta Oral Suspension - PO 30 ml Q6H PRN Administration DYSPEPSIA Colloidal Oatmeal 1 applic 01/08/18 13:50 01/08/18 22:11 Aveeno Soap - TP 1 applic DAILY PRN Administration HYGEINE Eucalyptus/Menthol/Phenol/Sorbitol 1 each 12/22/17 15:45 Cepastat Lozenge - MM Q4H PRN SORE THROAT Guaifenesin 10 ml 12/22/17 15:45 01/17/18 23:03 Robitussin Dm - PO 10 ml Q6H PRN Administration COUGH Hydroxyzine Pamoate 25 mg 12/22/17 15:45 Vistaril - PO Q4H PRN AGITATION Ibuprofen 400 mg 12/22/17 15:45 01/17/18 23:02 Motrin - PO 400 mg Q6H PRN Administration Pain Level 4-6 Lidocaine 1 patch 01/12/18 14:00 01/17/18 09:50 Lidoderm Patch - TP 1 patch DAILY VU Administration Loperamide HCl 4 mg 12/22/17 15:45 Imodium - PO Q6H PRN DIARRHEA Magnesium Citrate 300 ml 12/22/17 15:45 Citroma - PO Q48H PRN CONSTIPATION Magnesium Hydroxide 30 ml 12/22/17 15:45 Milk Of Magnesia - PO DAILY PRN CONSTIPATION Melatonin 5 mg 12/22/17 22:00 01/05/18 21:30 Melatonin PO 5 mg HS PRN Administration INSOMNIA Miscellaneous 1 each 01/12/18 22:00 01/17/18 23:05 Lidoderm Patch Removal MC Not Given DAILY@2200 VU Nicotine Polacrilex 2 mg 12/22/17 15:45 Nicorette Gum - BUC Q2H PRN NICOTINE REPLACEMENT RX Nifedipine 30 mg 12/23/17 10:00 01/17/18 09:50 Procardia Xl - PO 30 mg DAILY VU Administration Multivit/Folic Acid/Iron 1 tab 12/23/17 10:00 01/17/18 09:50 Vitamins (Sjr) - PO 1 tab DAILY VU Administration Pseudoephedrine/Triprolidine 1 combo 12/22/17 15:45 Actifed - PO TID PRN NASAL CONGESTION Thiamine HCl 100 mg 12/22/17 22:00 01/17/18 23:04 Vitamin B1 - PO 100 mg HS VU Administration Current Side Effect: No Lab tests ordered: Yes Lab tests reviewed: Yes Provider note:: Patient will complete this program on 01/19/18. He has met his treatment goals and will continue to address his issues in outpatient treatment through Adult [facility] at [address] [place] [address]. Told designer/writer that from his participation in this program, he has learned to identify his triggers and better ways to avoid them. He is stable for discharged on 01/19/18 Total face to face time:: 35 Mental Status Exam - Mental Status Exam Alert and Oriented to: Time, Place, Person Cognitive Function: Fair Patient Appearance: Well Groomed Mood: Hopeful, Euthymic Affect: Appropriate Patient Behavior: Cooperative Speech Pattern: Clear Voice Loudness: Normal Thought Process: Intact, Goal Oriented Thought Disorder: Not Present Hallucinations: Denies Suicidal Ideation: Denies Homicidal Ideation: Denies Insight/Judgement: Fair Sleep: Fair Appetite: Good Muscle strength/Tone: Normal Gait/Station: Normal Psychiatric Treatment Plan - Problem List (1) Alcohol dependence Current Visit: Yes Qualifiers: Qualified Code(s): F10.230 - Alcohol dependence with withdrawal, uncomplicated (2) Nicotine dependence Current Visit: Yes Qualifiers: Nicotine product type: cigarettes Substance use status: uncomplicated Qualified Code(s): F17.210 - Nicotine dependence, cigarettes, uncomplicated (3) Substance induced mood disorder Current Visit: Yes (4) Substance-induced sleep disorder Current Visit: Yes (5) Fracture, ribs Current Visit: Yes Qualifiers: Laterality: left (6) Arthritis of both knees Current Visit: Yes (7) Essential hypertension Current Visit: Yes (8) Status post placement of cardiac pacemaker Current Visit: Yes (9) Use of cane as ambulatory aid Current Visit: No Initial treatment plan: Patient will be discharged tomorrow and referred to Adult Protective Services for outpatient treatment
[2018-01-18] MEDS: LIDOCAINE 5% TOPICAL PATCH TP SCH (10:00)
[2018-01-18] MEDS: NIFEdipine E.R. 30 MG TABLET (FP) PO SCH (10:00)
[2018-01-18] MEDS: PRENATAL VITAMINS W/ FOLIC ACID TABLET (FP) PO SCH (10:00)
[2018-01-18] MEDS: IBUPROFEN 400 MG TABLET (FP) PO PRN (10:01)
[2018-01-18] MEDS ORDERED: PT OWN MED DRAWER 7, Y5N ONE (16:12)
[2018-01-18] MEDS: THIAMINE HCL 100 MG TABLET (FP) PO SCH (22:01)
[2018-01-18] MEDS: LIDOCAINE PATCH REMOVAL MC SCH (22:23)
[2018-01-19 06:41] VITALS: TEMP 97.9
[2018-01-19 10:25] VITALS: BP 114/66; PULSE 80
[2018-01-19] MEDS: PRENATAL VITAMINS W/ FOLIC ACID TABLET (FP) PO SCH (10:39)
[2018-01-19] MEDS: LIDOCAINE 5% TOPICAL PATCH TP SCH (10:39)
[2018-01-19] MEDS: NIFEdipine E.R. 30 MG TABLET (FP) PO SCH (10:39)
[2018-01-19] MEDS: IBUPROFEN 400 MG TABLET (FP) PO PRN (10:39)
== END 2018-01-19 14:45 | disposition home or self-care (01) | DRG 895 ==
LOC: YASAS 09:51 → Y3N 13:18 → Y3W 12-22 12:52
PROVIDERS: ATTEND Psychiatry & Neurology Psychiatry
PROC: HZ2ZZZZ Detoxification Services for Substance Abuse Treatment (ICD-10-PCS; 2017-12-17)
PROC: HZ42ZZZ Group Counseling for Substance Abuse Treatment, Cognitive-Behavioral (ICD-10-PCS; principal; 2017-12-22)
DX: F10.20 Alcohol dependence, uncomplicated (principal); S22.42XA Multiple fractures of ribs, left side, initial encounter for closed fracture; F19.282 Other psychoactive substance dependence with psychoactive substance-induced sleep disorder; F17.210 Nicotine dependence, cigarettes, uncomplicated; F19.24 Other psychoactive substance dependence with psychoactive substance-induced mood disorder; I10 Essential (primary) hypertension; E86.0 Dehydration; R55 Syncope and collapse; M17.11 Unilateral primary osteoarthritis, right knee; M17.12 Unilateral primary osteoarthritis, left knee; W19.XXXA Unspecified fall, initial encounter; Y93.89 Activity, other specified; Y92.9 Unspecified place or not applicable; Y99.8 Other external cause status; R26.89 Other abnormalities of gait and mobility; Z99.89 Dependence on other enabling machines and devices
CPT/HCPCS: 36415; 80053; 85027; 86593; 90688; 93005; 93010; G0008